=== PATIENT | male | born 1995 | race Caucasian/White ===

== ENCOUNTER 2017-09-08 20:17 | Emergency (ER) | payer OTHER ==
[~2017-09-08] VITALS: Ht 182.9 cm; Wt 65.9 kg
[2017-09-08 20:24] VITALS: BP 144/86; PULSE 94; RESP 16; TEMP 98.2; TEMP 98.7; O2SAT 99
[2017-09-08] MEDS ORDERED: ACETAMINOPHEN 325 MG TAB PO ONE (20:30)
[2017-09-08] MEDS ORDERED: TETANUS/DIPHTHERIA TOXOID ADULT 0.5 ML VIAL IM ONE (20:30)
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
[2017-09-08 20:56] LABS: AUTOMATED NEUTROPHIL # 6.9 TH/MM3 (1.8-7.7); BASOPHIL # 0.1 TH/MM3 (0-0.2); BASOPHIL % 0.8 % (0.0-2.0); EOSINOPHIL % 0.3 % (0.0-4.0); HEMATOCRIT 41.5 % (39.0-51.0); HEMOGLOBIN 14.4 GM/DL (13.0-17.0); LYMPH % 32.1 % (9.0-44.0); LYMPHOCYTE # 3.7 TH/MM3 (1.0-4.8); MEAN CELL VOLUME 91.7 FL (80.0-100.0); MEAN CORPUSCULAR HEMOGLOBIN 31.7 PG (27.0-34.0); MEAN CORPUSCULAR HGB CONC 34.6 % (32.0-36.0); MEAN PLATELET VOLUME 7.7 FL (7.0-11.0); MONO % 6.3 % (0.0-8.0); MONOCYTE # 0.7 TH/MM3 (0-0.9); NEUT % 60.5 % (16.0-70.0); PLATELET COUNT 269 TH/MM3 (150-450); RED BLOOD COUNT 4.53 MIL/MM3 (4.50-5.90); RED CELL DISTRIBUTION WIDTH 13.1 % (11.6-17.2); WHITE BLOOD COUNT 11.5 TH/MM3 (4.0-11.0)
[2017-09-08 21:15] LABS: CALCIUM 8.8 MG/DL (8.5-10.1); CREATININE 0.92 MG/DL (0.60-1.30); MAGNESIUM 2.2 MG/DL (1.5-2.5)
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
[2017-09-08] MEDS ORDERED: DICL75TA PO (21:37)
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
[2017-09-08] MEDS ORDERED: CEPH-460 PO (21:41)
[2017-09-08 22:06] LABS: PROTHROMBIN TIME - PATIENT 10.1 SEC (9.8-11.6)
== END 2017-09-08 22:07 | disposition home or self-care (01) ==
LOC: NEPE 20:17
DX: S00.81XA Abrasion of other part of head, initial encounter (principal); F10.929 Alcohol use, unspecified with intoxication, unspecified; F12.90 Cannabis use, unspecified, uncomplicated; V43.62XA Car passenger injured in collision with other type car in traffic accident, initial encounter; Y90.8 Blood alcohol level of 240 mg/100 ml or more; Z23 Encounter for immunization
CPT/HCPCS: 70450; 70486; 72125; 80048; 80307; 83735; 85025; 85610; 85730; 90471; 90714